=== PATIENT | male | born 1965 | race Caucasian/White ===

== ENCOUNTER 2018-12-10 09:55 | Day surgery (SDC) | payer BC ==
[~2018-12-10 09:55] MED LIST: Metoclopramide 10 MG/2 ML SDV IV PRN
[2018-12-10] MEDS: Sodium Chloride 0.9% 1,000 ML IV SCH (10:42)
[2018-12-10] MEDS ORDERED: Propofol 1,000 MG/100 ML SDV ONE (11:36)
--- NOTE | 2018-12-10 15:06 | OR ---
DATE OF OPERATION: 12/10/2018 PREOPERATIVE DIAGNOSIS: Screening colonoscopy. POSTOPERATIVE DIAGNOSIS: Screening colonoscopy. PROCEDURE: Screening colonoscopy. ANESTHESIA: MAC. ESTIMATED BLOOD LOSS: None. COMPLICATIONS: None. INDICATION FOR THE PROCEDURE: The patient is a 53-year-old male, here today for screening colonoscopy. Denies any family history of colon cancer. Denies any change in bowel habits. DESCRIPTION OF PROCEDURE: Informed consent was obtained with the patient. The patient was taken to the operating room and placed on the table in left lateral decubitus position. Monitored anesthesia care was administered. Digital rectal exam performed and was normal. Colonoscope was then advanced through the anus and directed toward the cecum. Cecum was reached and identified by appendiceal orifice and ileocecal valve. Colonoscope was then slowly withdrawn. No masses. No polyps. No areas of ischemia or inflammation. No AV malformations identified. No signs of diverticula either. Retroflexion performed in the rectum was also otherwise unremarkable. Colonoscope was then withdrawn. FINDINGS: Normal colonoscopy. RECOMMENDATIONS: Would recommend repeat screening colonoscopy in 10 years. PATRICIA /[id number]
== END 2018-12-10 13:15 | disposition home or self-care (01) ==
LOC: LB.SDS 09:55
PROVIDERS: ATTEND Surgery
DX: Z12.11 Encounter for screening for malignant neoplasm of colon (principal); I10 Essential (primary) hypertension; E78.5 Hyperlipidemia, unspecified; E03.9 Hypothyroidism, unspecified; Z87.891 Personal history of nicotine dependence; Z79.82 Long term (current) use of aspirin; Z79.899 Other long term (current) drug therapy
CPT/HCPCS: G0121; J2704; J7030

== ENCOUNTER 2024-03-23 15:49 | Emergency (ER) | payer BC ==
[2024-03-23] MEDS: Aspirin 81 MG Tab.Chew PO ONE ×2 (16:11→16:18)
[2024-03-23] MEDS: Clopidogrel 75 MG Tab PO ONE (16:12)
[2024-03-23] MEDS: Heparin Sodium 5,000 Units/ML Vial IVPUSH ONE (16:19)
[2024-03-23 16:30] LABS: BASOPHILS ABSOLUTE AUTO 0.02 K/uL (0.02-0.10); BASOPHILS PERCENT AUTO 0.2 % (0.0-0.5); EOSINOPHILS ABSOLUTE AUTO 0.11 K/uL (0.04-0.40); HEMATOCRIT 47.5 % (40.0-54.0); HEMOGLOBIN 16.9 g/dL (13.0-18.0); LYMPHOCYTES ABSOLUTE AUTO 1.23 K/uL (1.50-4.00); LYMPHOCYTES PERCENT AUTO 11.7 % (20.0-40.0); MEAN CORPUSCULAR HGB CONC 35.6 g/dL (31.0-35.0); MEAN CORPUSCULAR VOLUME 84 fL (76-96); MEAN PLATELET VOLUME 10.1 fL (6.0-10.0); MONOCYTES ABSOLUTE AUTO 0.72 K/uL (0.20-0.80); MONOCYTES PERCENT AUTO 6.9 % (3.0-10.0); NEUTROPHILS ABSOLUTE AUTO 8.41 K/uL (2.00-7.50); NEUTROPHILS PERCENT AUTO 80.2 % (45.0-70.0); PLATELET COUNT,PLT 188 K/uL (150-400); RED BLOOD CELL COUNT 5.64 M/uL (4.50-6.50); WHITE BLOOD CELL COUNT,WBC 10.5 K/uL (4.0-11.0)
[2024-03-23] MEDS: Heparin Sodium/D5W 25,000 UNITS/500 ML BAG IV SCH (16:33)
[2024-03-23 16:44] LABS: PTT,PARTIAL THROMBOPLSTIN TIME 24.2 SECONDS (24.4-33.2)
[2024-03-23 16:49] LABS: A/G RATIO 1.2 (0.8-2.0); ALBUMIN 4.1 g/dL (3.4-5.0); ANION GAP 9.6 mmol/L (5.0-15.0); BILIRUBIN TOTAL 1.1 mg/dL (0.0-1.0); BUN/CREATININE RATIO 8.7 (6-25); CALCIUM 9.3 mg/dL (8.5-10.1); CARBON DIOXIDE,CO2 29.5 mmol/L (21.0-32.0); CREATININE 1.04 mg/dL (0.70-1.30); EST CRCL DRUG DOSING (CG) 68.99 mL/min; POTASSIUM,K 3.1 mmol/L (3.5-5.1); PROTEIN TOTAL,TP 7.5 g/dL (6.4-8.2)
[2024-03-23 16:59] LABS: PROTHROMBIN TIME 10.3 sec (9.0-11.5)
[2024-03-23] MEDS: Nitroglycerin 2% Oint 30 GM Tube TOP ONE (17:31)
== END 2024-03-23 19:00 ==
LOC: LB.ED 15:49
DX: I21.4 Non-ST elevation (NSTEMI) myocardial infarction (principal); I10 Essential (primary) hypertension; K21.9 Gastro-esophageal reflux disease without esophagitis; E78.00 Pure hypercholesterolemia, unspecified; Z79.899 Other long term (current) drug therapy
CPT/HCPCS: 36415; 71045; 80053; 84484; 85025; 85610; 85730; 93005; 96365; 96366; 99285-25; A9270-GY; J1644

== ENCOUNTER 2024-12-31 08:45 | Emergency (ER) | payer BC ==
[2024-12-31] MEDS: Ondansetron 4 MG Tab.DIS PO ONE (09:21)
[2025-01-05 23:25] LABS: ANAPLASMA PHAGOCYTOPHILUM PCR Not Detected; BABESIA MICROTI BY PCR Not Detected; EHRLICHIA CHAFFEENSIS BY PCR Not Detected; EHRLICHIA EWINGII/CANIS BY PCR Not Detected; EHRLICHIA MURIS-LIKE BY PCR Not Detected
== END 2024-12-31 09:30 | disposition home or self-care (01) ==
LOC: LB.ED 08:45
DX: L03.115 Cellulitis of right lower limb (principal); L03.116 Cellulitis of left lower limb; L98.9 Disorder of the skin and subcutaneous tissue, unspecified; K52.9 Noninfective gastroenteritis and colitis, unspecified; I10 Essential (primary) hypertension; E78.00 Pure hypercholesterolemia, unspecified; Z79.82 Long term (current) use of aspirin; Z79.899 Other long term (current) drug therapy
CPT/HCPCS: 36415; 87468; 87469; 87484; 87798; 99283; 99284; A9270-GY; Q0162